=== PATIENT | female | born 1980 | race Caucasian/White ===

== ENCOUNTER 2019-10-07 23:54 | Emergency (ER) | payer MEDICAID ==
[~2019-10-07] VITALS: Ht 152.4 cm; Wt 68.0 kg
--- NOTE | 2019-10-08 00:06 | NUR ---
PLACED IN C-COLL[facility]
[2019-10-08] MEDS ORDERED: LIDOcaine 1% W/epiNEPHrine 1:200,000 10ml vial IJ ONE (00:20)
[2019-10-08] MEDS ORDERED: TETanus/Pertussis (Acell)/Diphther VAC/PF (Tdap-Adult) 0.5ml syringe IMVAC ONE (00:20)
--- NOTE | 2019-10-08 00:45 | NUR ---
pt to CT on monitor with RN
--- NOTE | 2019-10-08 01:13 | NUR ---
pt back to room, waiting for CT results, pt is alert and oriented, resp even and unlabored, skin p/w/d, moving all extremities, no numbness/tingling to extremities
--- NOTE | 2019-10-08 01:35 | NUR ---
pt amb with steady gait to restroom
--- NOTE | 2019-10-08 02:00 | NUR ---
irrigated lac to head with 1 liter NS, pt Dr Jamey lepe at bedside to staple lac with 2 monet
[2019-10-08 02:07] VITALS: BP 140/86
--- NOTE | 2019-10-08 02:20 | NUR ---
APPLIED TRIPLE ANTIBIOTIC OINTMENT, 4X4 AND COBAN TO HEAD LAC
[2019-10-08] MEDS ORDERED: iohexol 300mg/ml 100ml inj. ONE (02:23)
== END 2019-10-08 02:32 | disposition home or self-care (01) ==
LOC: ER 23:54
DX: S01.01XA Laceration without foreign body of scalp, initial encounter (principal); M54.2 Cervicalgia; V86.59XA Driver of other special all-terrain or other off-road motor vehicle injured in nontraffic accident, initial encounter; Y93.89 Activity, other specified; Y92.89 Other specified places as the place of occurrence of the external cause; Y99.8 Other external cause status
CPT/HCPCS: 12001; 70450; 70491; 72125; 90471; 90715; 99284; Q9967